=== PATIENT | male | born 1980 | race Caucasian/White ===

== ENCOUNTER 2017-05-11 13:01 | Outpatient (CLI) | payer OTHER | END 2017-05-11 13:02 | disposition home or self-care (01) | LOC: SC 13:01 | PROVIDERS: ATTEND Nurse Practitioner Family | DX: R06.81 Apnea, not elsewhere classified (principal); R06.83 Snoring; G47.8 Other sleep disorders | CPT/HCPCS: 99203; 99212 ==

== ENCOUNTER 2017-06-14 19:26 | Outpatient (CLI) | payer OTHER | END 2017-06-14 19:27 | disposition home or self-care (01) | LOC: SC 19:26 | PROVIDERS: ATTEND Internal Medicine Pulmonary Disease | DX: G47.9 Sleep disorder, unspecified (principal); R06.81 Apnea, not elsewhere classified; R06.83 Snoring; G47.10 Hypersomnia, unspecified; R53.83 Other fatigue | CPT/HCPCS: 95810 ==

== ENCOUNTER 2017-07-11 09:07 | Outpatient (CLI) | payer OTHER | END 2017-07-11 09:08 | disposition home or self-care (01) | LOC: SC 09:07 | PROVIDERS: ATTEND Nurse Practitioner Family | DX: G47.10 Hypersomnia, unspecified (principal); R06.83 Snoring | CPT/HCPCS: 99212; 99214 ==

== ENCOUNTER 2017-08-22 08:48 | Outpatient (CLI) | payer OTHER | END 2017-08-22 08:49 | disposition home or self-care (01) | LOC: SC 08:48 | PROVIDERS: ATTEND Nurse Practitioner Family | DX: G47.10 Hypersomnia, unspecified (principal); I49.9 Cardiac arrhythmia, unspecified | CPT/HCPCS: 99212; 99214 ==

== ENCOUNTER 2017-11-15 18:59 | Outpatient (CLI) | payer OTHER | END 2017-11-15 19:00 | disposition home or self-care (01) | LOC: SC 18:59 | PROVIDERS: ATTEND Internal Medicine Pulmonary Disease | DX: G47.61 Periodic limb movement disorder (principal); G47.10 Hypersomnia, unspecified | CPT/HCPCS: 95810 ==

== ENCOUNTER 2017-11-16 07:15 | Outpatient (CLI) | payer OTHER | END 2017-11-16 07:16 | disposition home or self-care (01) | LOC: SC 07:15 | PROVIDERS: ATTEND Internal Medicine Pulmonary Disease | DX: G47.10 Hypersomnia, unspecified (principal) | CPT/HCPCS: 95805 ==

== ENCOUNTER 2017-11-16 08:00 | Outpatient (CLI) | payer OTHER ==
[2017-11-16 14:24] LABS: MUDS CUTOFF CONCENTRATIONS CUTOFF CONC BELOW:
[2017-11-16 14:39] LABS: AMPHETAMINE SCREEN,URINE NEGATIVE (NEGATIVE); COCAINE SCREEN URINE NEGATIVE (NEGATIVE); METHAMPHETAMINES SCREEN, URINE NEGATIVE (NEGATIVE); OPIATE SCREEN, URINE NEGATIVE (NEGATIVE)
[2017-11-16 14:40] LABS: BENZODIAZEPINES SCREEN, URINE NEGATIVE (NEGATIVE); METHADONE SCREEN, URINE NEGATIVE (NEGATIVE); OXYCODONE SCREEN, URINE NEGATIVE (NEGATIVE); PROPOXYPHENE SCREEN, URINE NEGATIVE (NEGATIVE); TRICYCLIC ANTIDEPRESSANT,URINE NEGATIVE (NEGATIVE)
== END 2017-11-16 08:01 | disposition home or self-care (01) ==
LOC: LAB.R 08:00
PROVIDERS: ATTEND Nurse Practitioner Family
DX: G47.10 Hypersomnia, unspecified (principal)
CPT/HCPCS: 80306

== ENCOUNTER 2018-01-30 14:32 | Outpatient (CLI) | payer OTHER | END 2018-01-30 14:33 | disposition home or self-care (01) | LOC: SC 14:32 | PROVIDERS: ATTEND Internal Medicine Pulmonary Disease | DX: G47.11 Idiopathic hypersomnia with long sleep time (principal) | CPT/HCPCS: 99212; 99213 ==

== ENCOUNTER 2018-03-07 15:24 | Outpatient (CLI) | payer OTHER | END 2018-03-07 15:25 | disposition home or self-care (01) | LOC: SC 15:24 | PROVIDERS: ATTEND Internal Medicine Pulmonary Disease | DX: G47.11 Idiopathic hypersomnia with long sleep time (principal) | CPT/HCPCS: 99212; 99213 ==

== ENCOUNTER 2019-06-25 14:07 | Outpatient (CLI) | payer OTHER ==
--- NOTE | 2019-06-29 08:03 | SLEEP CARE CONSULTATION ---
Information from patient questionnaire entered by Diandra Villafuerte. I have reviewed and concur with the information entered by Diandra Villafuerte. This document represents the service I personally performed and the decisions made by me, Zulma Cox MD, [facility]. History of Present Illness Previous diagnosis: Other (Idiopathic Hypersomnia) Reason for CPAP/BiPAP follow up: annual Prior sleep studies: Yes Year and Where: 2016 [facility] additional information: HPI: Mr. Lugo returned today for follow up of treatment for Idiopathic Hypersomnia. The patient was prescribed with modafinil 200 mg in the morning. He reports that the medication works well but he has to take the second dose around noon time. He experiences no side effects such as sore throat,headache, numbness,tingling, pain,muscle weakness; bruisingorbleeding. He is getting about 9 hours of sleep a night. Occasionally he does not take the medication on weekends. Subjective Initial Redfield Sleepiness Scale score: 16 Current Redfield Sleepiness Scale score: 18 Allergies and Home Medications Drug allergies reviewed: Yes Home medication list reviewed: Yes Review of Systems Review of systems same as previous: Yes Physical Exam Vital signs obtained and entered by: not performed Impression and Plan IMPRESSION: 1. Idiopathic Hypersomnia, with good response to modafinil 200 mg twice a day. I will refill the medication for him. PLAN: 1. Prescription made for modafinil 1 tab in the morning and 1 tab at noon as needed for daytime sleepiness; a total of 180 tabs (3-month supply).. 2. Return for follow up in a year or earlier if there is any problem. I spent 100% of this 15 minute visit face to face with the patient with greater than 50% of this was spent time counseling the patient and coordination of care.
== END 2019-06-25 14:08 | disposition home or self-care (01) ==
LOC: SC 14:07
PROVIDERS: ATTEND Internal Medicine Pulmonary Disease
DX: G47.11 Idiopathic hypersomnia with long sleep time (principal)
CPT/HCPCS: 99212; 99213

== ENCOUNTER 2019-08-10 09:02 | Outpatient (CLI) | payer OTHER ==
--- NOTE | 2019-08-10 12:33 | MRI Report ---
Reason: PAIN IN KNEE Procedure Date: 08/10/2019 Accession Number: [id number] / [id number] Procedure: MRI - Knee LT W/O CPT Code: Final Report FULL RESULT: EXAM: LEFT KNEE MRI WITHOUT CONTRAST EXAM DATE: 08/10/2019 10:36 AM. CLINICAL HISTORY: Pain in knee. COMPARISON: None. TECHNIQUE: Multiplanar, multisequence T1-weighted and fluid-sensitive sequences of the knee without contrast. Other: None. FINDINGS: Bones: No fracture. Mild bone marrow edema and subchondral cysts at the posterior aspect lateral tibial plateau. 1.0 x 1.1 x 1.6 cm sessile osteochondroma at the anteromedial aspect distal femoral metaphysis. Articular Cartilage: Small region deep partial to full-thickness loss posterior aspect lateral tibial plateau. Deep fissuring/tearing at the mid to superior aspect lateral patellar facet. Medial Meniscus: The medial meniscus is intact. Lateral Meniscus: Degenerative fraying at the free edges body and posterior horn. Subtle horizontal tear at the inferior articular surface posterior horn. Cruciate Ligaments: The anterior and posterior cruciate ligaments are intact. Collateral Ligaments: The medial collateral and lateral collateral ligamentous structures are intact. Tendons: Mild quadriceps and patellar tendinopathy. Popliteus and semimembranosus tendon unremarkable. Musculature: No fatty atrophy. Minimal edema along the deep aspect vastus medialis muscle overlying the osteochondroma. Other: Minimal joint effusion. Small focus of fluid/ganglion extends through the popliteus hiatus and deep to the popliteus myotendinous junction. This measures 3.2 cm craniocaudal. Small popliteal cyst. No loose bodies. The medial and lateral retinacula are intact. Mild subcutaneous edema anteriorly. Mild reactive edema in Hoffa's fat pad. IMPRESSION: 1. Degenerative fraying and subtle horizontal tear posterior horn lateral meniscus. 2. Small region deep partial to full-thickness cartilage loss lateral tibial plateau. Shallow fissure/tear lateral patellar facet. 3. Minimal joint effusion. 4. Small popliteal cyst. 5. 3.2 cm ganglion extending deep to the popliteus muscle. 6. Mild quadriceps and patellar tendinopathy. 7. 1.6 cm osteochondroma anteromedial aspect distal femoral metaphysis. Subtle reactive edema in the vastus medialis muscle. RADIA
== END 2019-08-10 09:03 | disposition home or self-care (01) ==
LOC: DI 09:02
PROVIDERS: ATTEND Nurse Practitioner Family
DX: S83.282A Other tear of lateral meniscus, current injury, left knee, initial encounter (principal); M25.462 Effusion, left knee; M71.22 Synovial cyst of popliteal space [Baker], left knee; M67.462 Ganglion, left knee; D16.22 Benign neoplasm of long bones of left lower limb

== ENCOUNTER 2020-01-04 07:16 | Outpatient (CLI) | payer OTHER ==
--- NOTE | 2020-01-04 15:28 | MRI Report ---
Reason: PAIN IN RT KNEE, OTHER DERANGEMENTS Procedure Date: 01/04/2020 Accession Number: [id number] / [id number] Procedure: MRI - Knee RT W/O CPT Code: Final Report FULL RESULT: EXAM: RIGHT KNEE MRI WITHOUT CONTRAST EXAM DATE: 01/04/2020 08:19 AM. CLINICAL HISTORY: Pain in right knee, other derangements. COMPARISON: None. TECHNIQUE: Multiplanar, multisequence T1-weighted and fluid-sensitive sequences of the knee without contrast. Other: None. FINDINGS: Cruciate ligaments: The anterior and posterior cruciate ligaments appear intact. Medial meniscus: Intact. No tear is identified. Lateral meniscus: Intact. No tear is identified. Collateral ligaments: The medial and fibular collateral ligaments appear intact. Bones and articular surfaces: Small amount of heterogenous signal and cartilage surface irregularity over the patella. Medial plica is noted with some adjacent fat pad edema. Slight cartilage thinning and surface irregularity in the weightbearing medial compartment. No focal articular cartilage defects. No significant joint effusion. Extensor mechanism: The patellar tendon and quadriceps insertion appear intact. IMPRESSION: 1. 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 2. Medial plica is present. There is some edema within the superomedial fat. Possibility of plica syndrome. 3. Minimal degenerative cartilage change in the weightbearing medial compartment. RADIA
== END 2020-01-04 07:17 | disposition home or self-care (01) ==
LOC: DI 07:16
PROVIDERS: ATTEND Family Medicine
DX: M94.261 Chondromalacia, right knee (principal); M17.11 Unilateral primary osteoarthritis, right knee

== ENCOUNTER 2024-01-13 16:47 | Emergency (ER) | payer OTHER ==
[2024-01-13 17:00] VITALS: O2SAT 100
--- NOTE | 2024-01-13 17:09 | ED Physician Documentation ---
History of Present Illness - Stated complaint Stated Complaint: GI - Chief complaint Chief Complaint: Abd Pain - History obtained from History obtained from: Patient, Family - History of Present Illness Pain level max: 4 Pain level now: 4 - Additonal information Additional information: Patient is a 43-year-old male who presents to the emergency department diffuse abdominal cramping, started about a week ago when he was in [facility]. Has had diarrhea for the past 2 to 3 days. Bright red blood in the stool yesterday and today. He has been using Pepto-Bismol at home without relief. No fevers. No chills. No recent antibiotics. No other travel. No dark or tarry stools. Nothing makes it better or worse. States he is having loose watery diarrhea 3-4 times per day. Nothing seems to make it better or worse. Review of Systems Constitutional: denies: Fever, Chills, Myalgias GI: reports: Diarrhea. denies: Vomiting, Hematemesis : denies: Dysuria, Frequency, Hesitancy Skin: denies: Rash PD PAST MEDICAL HISTORY - Past Medical History Past Medical History: No - Past Surgical History Past Surgical History: No - Present Medications Home Medications: Ambulatory Orders Medication Instructions Recorded Confirmed Ciprofloxacin HCl [Cipro] 500 mg PO BID #6 tablet 01/13/24 - Allergies Allergies/Adverse Reactions: Allergies Allergy/AdvReac Type Severity Reaction Status Date / Time No Known Drug Allergies Allergy Verified 01/13/24 16:51 - Social History Does the pt smoke?: No Smoking Status: Never smoker Does the pt drink ETOH?: Yes Does the pt have substance abuse?: No - Immunizations Immunizations are current?: Yes PD ED PE NORMAL - Vitals Vital signs reviewed: Yes - General General: Alert and oriented X 3, No acute distress - HEENT HEENT: Moist mucous membranes - Neck Neck: Supple, no meningeal sign - Cardiac Cardiac: RRR, Strong equal pulses - Respiratory Respiratory: No respiratory distress, Clear bilaterally - Abdomen Abdomen: Soft, Non distended, Other (Mild diffuse tenderness to palpation with no peritoneal signs. No rebound or guarding.) - Back Back: No CVA TTP, No spinal TTP - Derm Derm: Warm and dry - Neuro Neuro: Alert and oriented X 3 - Psych Psych: Normal mood, Normal affect Results - Vitals Vitals: Vital Signs - 24 hr 01/13/24 16:51 Temperature 36.1 C L Heart Rate 72 Respiratory 16 Rate Blood Pressure 131/79 H O2 Saturation 100 Oxygen O2 Source Room air PD Medical Decision Making - ED course Complexity details: considered differential, d/w patient ED course: Patient is well-appearing, nontoxic. Afebrile. Abdomen is soft, minimally tender. No peritoneal signs. Appears to be ill with traveler's diarrhea. Will treat with ciprofloxacin and manage expectantly. If he fails to improve with antibiotics would consider further workup including stool culture, potential CT scan. No fevers. No chills. No myalgias. No evidence of infection that require laboratory testing or cultures at this time. Diarrhea 3-4 times daily. Patient counseled regarding signs and symptoms for which I believe and urgent re-evaluation would be necessary. Patient with good understanding of and agreement to plan and is comfortable going home at this time This document was made in part using voice recognition software. While efforts are made to proofread this document, sound alike and grammatical errors may occur. Departure - Departure Disposition: 01 Home, Self Care Clinical Impression: Travelers' diarrhea Condition: Good Instructions: ED Diarrhea Traveler Follow-Up: MAUREEN FARRAR, [Primary Care Provider] - Within 1 week Prescriptions: Ciprofloxacin HCl [Cipro] 500 mg PO BID #6 tablet Comments: Your prescription was sent to [facility] in [place]. Please take all antibiotics until gone. Your diarrhea should resolve with the antibiotic course. If you are worsening, develop fevers, body aches or other new or worrisome symptoms, return for further evaluation. This is most likely a case of traveler's diarrhea. Forms: PCP List
[2024-01-13 17:28] VITALS: BP 132/82
== END 2024-01-13 17:22 | disposition home or self-care (01) ==
LOC: ED 16:47
DX: A09 Infectious gastroenteritis and colitis, unspecified (principal)
CPT/HCPCS: 99282; 99283